=== PATIENT | male | born 1980 ===

== ENCOUNTER 2018-09-18 20:02 | Emergency (ER) | payer BC ==
[2018-09-18 20:34] VITALS: BMI 45.1
[2018-09-18 20:36] VITALS: TEMP 98
--- NOTE | 2018-09-18 21:37 | ED PDOC ---
Arrival/HPI - General Chief Complaint: Lower Extremity Problem/Injury Time Seen by Provider: 09/18/18 21:00 Historian: Patient - History of Present Illness Narrative History of Present Illness (Text): 09/18/18 21:33 37yo morbidly obese male who present with complaint of right foot pain s/p trauma 3days ago. 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 States he took Tylenol yesterday with mild relieve. Ambulating with a limp. Denies any other complaint. Past Medical History - Provider Review Nursing Documentation Reviewed: Yes - Infectious Disease Hx of Infectious Diseases: None - Cardiac Hx Cardiac Disorders: No - Pulmonary Hx Respiratory Disorders: Yes Hx Asthma: Yes - Neurological Hx Neurological Disorder: No - HEENT Hx HEENT Disorder: No - Renal Hx Renal Disorder: No - Endocrine/Metabolic Hx Endocrine Disorders: No - Hematological/Oncological Hx Blood Disorders: No - Integumentary Hx Dermatological Disorder: No - Musculoskeletal/Rheumatological Hx Musculoskeletal Disorders: No - Gastrointestinal Hx Gastrointestinal Disorders: No - Genitourinary/Gynecological Hx Genitourinary Disorders: No - Psychiatric Hx Psychophysiologic Disorder: No Hx Substance Use: No - Surgical History Hx Cholecystectomy: Yes Family/Social History - Physician Review Nursing Documentation Reviewed: Yes Family/Social History: Unknown Family HX Smoking Status: Never Smoked Hx Alcohol Use: Yes Frequency of alcohol use: Socially Hx Substance Use: No Allergies/Home Meds Allergies/Adverse Reactions: Allergies shellfish derived Allergy (Verified 09/18/18 20:34) ANAPHYLAXIS Review of Systems - Physician Review All systems were reviewed & negative as marked: Yes - Review of Systems Constitutional: Normal Eyes: Normal ENT: Normal Respiratory: Normal Cardiovascular: Normal Gastrointestinal: Normal Genitourinary Male: Normal Musculoskeletal: Arthralgias (Right foot) Skin: Normal Neurological: Normal Endocrine: Normal Hemo/Lymphatic: Normal Psychiatric: Normal Physical Exam Vital Signs Reviewed: Yes Vital Signs Temp Pulse Resp BP Pulse Ox 09/18/18 20:38 151/98 H 09/18/18 20:34 98.0 F 67 18 163/100 H 95 Temperature: Afebrile Blood Pressure: Normal Pulse: Regular Respiratory Rate: Normal Appearance: Positive for: Well-Appearing, Non-Toxic, Comfortable Pain Distress: None Mental Status: Positive for: Alert and Oriented X 3 - Systems Exam Head: Present: Atraumatic, Normocephalic Pupils: Present: PERRL Extroacular Muscles: Present: EOMI Conjunctiva: Present: Normal Mouth: Present: Moist Mucous Membranes Neck: Present: Normal Range of Motion Respiratory/Chest: Present: Clear to Auscultation, Good Air Exchange. No: Respiratory Distress, Accessory Muscle Use Cardiovascular: Present: Regular Rate and Rhythm, Normal S1, S2. No: Murmurs Abdomen: No: Tenderness, Distention, Peritoneal Signs Back: Present: Normal Inspection Upper Extremity: Present: Normal Inspection. No: Cyanosis, Edema Lower Extremity: Present: NORMAL PULSES, Normal ROM, Tenderness (Medial lateral right foot), Neurovascularly Intact. No: Edema Neurological: Present: GCS=15, CN II-XII Intact, Speech Normal Skin: Present: Warm, Dry, Normal Color. No: Rashes Psychiatric: Present: Alert, Oriented x 3, Normal Insight, Normal Concentration Medical Decision Making ED Course and Treatment: 09/19/18 01:37 Right foot xray - No acute fracture Result was DW the pt. Blane wrap and surgical shoe placed in ED. A cane given for ambulation Advised to RICE foot. Ibuprofen 600mg rx given to pt. Advised that he will be notified if the official result is different from today's result He verbalized understating. 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 - RAD Interpretation Radiology Orders: 09/18/18 21:00 FOOT RIGHT 3 VIEWS ROUTINE [RAD] Stat - Medication Orders Current Medication Orders: Discontinued Medications Ibuprofen (Motrin Tab) 600 mg PO STAT STA Stop: 09/18/18 21:03 Last Admin: 09/18/18 21:24 Dose: 600 mg Disposition/Present on Arrival - Present on Arrival Any Indicators Present on Arrival: No History of DVT/PE: No History of Uncontrolled Diabetes: No Urinary Catheter: No History of Decub. Ulcer: No History Surgical Site Infection Following: None - Disposition Have Diagnosis and Disposition been Completed?: Yes Diagnosis: Foot contusion Disposition: HOME/ ROUTINE Disposition Time: 22:00 Patient Plan: Discharge Condition: GOOD Discharge Instructions (ExitCare): Contusion (DC) Additional Instructions: Rest, Ice, compress and elevate Follow up with your doctor/[facility] Prescriptions: RX: Ibuprofen [Motrin Tab] 600 mg PO Q6 #15 tab Referrals: FAMILY PROVIDER,NO [Primary Care Provider] - Follow up with primary Betty Jones DPM [Staff Provider] - Follow up with primary Forms: [employer] [facility] (Tanzanian), WORK NOTE
[2018-09-18 22:19] VITALS: BP 148/89; PULSE 71; RESP 17; O2SAT 100
--- NOTE | 2018-09-19 09:57 | RAD ---
Date of service: 09/18/2018 PROCEDURE: Right Foot Radiographs. HISTORY: foot pain s/p trauma COMPARISON: None. FINDINGS: BONES: No acute fracture or destructive bony lesion identified. JOINTS: Normal. SOFT TISSUES: Normal. OTHER FINDINGS: None. IMPRESSION: Unremarkable right foot radiographs.
== END 2018-09-18 22:18 | disposition home or self-care (01) ==
LOC: ED 20:02
DX: S90.31XA Contusion of right foot, initial encounter (principal); W22.8XXA Striking against or struck by other objects, initial encounter; Y93.E9 Activity, other interior property and clothing maintenance; Y92.009 Unspecified place in unspecified non-institutional (private) residence as the place of occurrence of the external cause